=== PATIENT | female | born 1980 | race Caucasian/White ===

== ENCOUNTER → 2016-10-20 | Outpatient (CLI) | payer OTHER | LOC: FIMAGING 09:34 | PROVIDERS: ATTEND Obstetrics & Gynecology | DX: Z12.31 Encounter for screening mammogram for malignant neoplasm of breast (principal); Z80.3 Family history of malignant neoplasm of breast | CPT/HCPCS: G0202 ==

== ENCOUNTER → 2017-01-08 | Outpatient (CLI) | payer OTHER | LOC: FIMAGING 14:26 | PROVIDERS: ATTEND Obstetrics & Gynecology | DX: O09.521 Supervision of elderly multigravida, first trimester (principal); O26.851 Spotting complicating pregnancy, first trimester; Z3A.12 12 weeks gestation of pregnancy ==

== ENCOUNTER → 2017-03-05 | Outpatient (CLI) | payer OTHER | LOC: FIMAGING 08:08 | PROVIDERS: ATTEND Obstetrics & Gynecology | DX: O09.522 Supervision of elderly multigravida, second trimester (principal); Z3A.20 20 weeks gestation of pregnancy ==

== ENCOUNTER 2017-07-18 19:40 | Inpatient (IN) | payer OTHER ==
[2017-07-18] MEDS ORDERED: AMMONIA AROMATIC 1 EACH AMP IH ONE (19:50)
[2017-07-18] MEDS ORDERED: OXYTOCIN 10 UNIT/ML VIAL ONE (19:50)
[2017-07-18] MEDS ORDERED: LIDOCAINE 1% 300 MG/30 ML SDV ONE (19:50)
[2017-07-18] MEDS ORDERED: OLIVE OIL 118 ML BTL ONE (19:50)
[2017-07-18] MEDS ORDERED: TERBUTALINE SULFATE 1 MG/ML VIAL ONE (19:50)
[2017-07-18] MEDS ORDERED: MISOPROSTOL 200 MCG TAB ONE (19:50)
[2017-07-18] MEDS ORDERED: EPSOM SALT 454 GM TP PRN (19:54)
[2017-07-18] MEDS ORDERED: TERBUTALINE SULFATE 1 MG/ML VIAL IV PRN (19:54)
[2017-07-18] MEDS ORDERED: OXYTOCIN 20 UNIT in LR 1,000 ML IV PRN (19:54)
[2017-07-18] MEDS ORDERED: LR 1,000 ML IV PRN (19:54)
[2017-07-18] MEDS ORDERED: OLIVE OIL 118 ML BTL MISC PRN (19:54)
[2017-07-18] MEDS ORDERED: ACETAMINOPHEN 325 MG TAB PO PRN (20:58)
--- NOTE | 2017-07-18 21:02 | OBDEL ---
Info Type: Vaginal Presentation at Delivery: Vertex L&D Analgesia/Anesthesia Type: Local (1% lidocaine) GBS+: No - Infant Care Provider Instrumental Music Teacher/MECHANIC'S ASSISTANT: Chely Hall Indications for Delivery: Spontaneous Labor Vaginal Delivery - Delivery Provider Delivery Physician/CNM: Teresa Macias - Labor and Delivery Onset of Contractions Date: 07/18/17 Onset of Contractions Time: 17:00 Onset of Contractions Type: Spontaneous Rupture of Membranes Date: 07/18/17 Rupture of Membranes Time: 19:30 Rupture of Membranes Type: Spontaneous Amniotic Fluid Color: Clear Dilation Complete Date: 07/18/17 Dilation Complete Time: 19:45 Placenta Delivery Date: 07/18/17 Placenta Delivery Time: 20:07 Total Hours of Labor: 3 Laceration: 2nd Degree Repair: 3-0, Vicryl Vaginal Sponge Count Correct: Yes Vaginal Needle Count Correct: Yes Vaginal Sweep Performed: Yes EBL: 300 Delivery Events: Nuchal Cord (x2, tight and baby delivered through rapidly) - Medications Labor Augmentation/Induction Methods Used: None [place] Data [place] Delivery Date: 07/18/17 Delivery Time: 20:00 DAVID: 07/21/17 Gestational Age: 39 week(s) and 4 day(s) Sex of Infant: Female Score (1 Min): 8 Score (5 Min): 9 ICD10 Worksheet Patient Problems: Problems Problem Status Onset (spontaneous vaginal delivery) Acute
[2017-07-18] MEDS: IBUPROFEN 600 MG TAB PO PRN (21:12)
--- NOTE | 2017-07-18 22:02 | GHP ---
[f rep st] PREOP HISTORY AND PHYSICAL DATE OF ADMISSION: 07/18/2017 HISTORY OF PRESENT ILLNESS: The patient is a 37-year-old, G3, P1, A1 with estimated due date of 09/2016, who presents at 39+ weeks' gestation in active labor with an imminent delivery. The patient reported spontaneous onset of contractions this morning approximately 3:00 a.m., but they were up to half an hour apart. The frequency became less than 10 minutes at approximately 1700 today. The carmen ent reports that they were moderate to strong intensity, but never got more frequent than 8 minutes a part. At approximately 1720 the patient started feeling that she needed to push, and proceeded to [facility]. On the way to the hospital, she had spontaneous rupture of membranes with clear fluid. The patient was admitted at 7:45 p.m. The patient was found to be completely dilated with an uncontr ollable urge to push. Preparations were made for imminent delivery. PAST HISTORY: The patient has been with [facility] since 22 weeks gestation afte r transfer from [facility]. The patient has had an uncomplicated . The patient does have a history of kidney stones. However, no symptoms during the . The patient had b orderline platelets noted on a CBC at 28 weeks. A repeat was checked at 36 weeks and the platelets h ad improved from 165-125-114, and the patient's CBC was checked weekly in the last month. Platelets remained stable. LABS: Include maternal blood type O positive with negative antibody screen. RPR nonreactiv e. Rubella immune. Hepatitis B surface antigen negative. HIV negative. Cystic fibrosis was negati ve and the standard genetic panel was all negative. The varicella zoster was immune. Urinalysis was negative. Verifi testing was negative with negative MSAFP. Hematocrit was 39%. 1-hour Glucola was normal. GBS culture was negative. PAST MEDICAL HISTORY: The patient had a small subchorionic hemorrhage in the 1st trimester, but this spontaneously resolved. The patient had a history of 1 abnormal Pap smear, but the repeat Pap was n ormal. History of varicose veins and the patient wears supportive hose. Patient with a history of k idney stones at age 17. The patient's mother has had breast cancer at the age of 36, and the patient had a negative mammogram in October of 2016. PAST SURGICAL HISTORY: Only a D and C with an SAB in July 2016. HISTORY: In February 2014, a viable male delivered at 40 weeks at 6 pounds 12 ounces by vagina l delivery with an epidural. This was in [place]. In July 2016, the patient had a SAB, but requi red a D and C with that. ALLERGIES: The patient has no known drug allergies. CURRENT MEDICATIONS: Only vitamins. SOCIAL HISTORY: The patient is , lives with her , Eder, and their son. The patien t is a nonsmoker. No alcohol or drug use. REVIEW OF SYSTEMS: A 10-point review of systems with pertinent positives and negatives as noted abov e. PHYSICAL EXAM: VITAL SIGNS: Upon admission, the patient had a quick blood pressure taken, which was normal and the patient was clinically afebrile. heart tone monitoring was very sparse in betw een pushing. It was not classically category 1 but reassuring with baseline in the 120s. Contractio ns every 2 minutes. The patient was pushing and the baby's head was . EXTREMITIES: Nontend er. Varicose veins noted. No edema. There was clear fluid noted on the perineum. ASSESSMENT: 1. Intrauterine at 39+ weeks' gestation in active labor with an imminent vaginal . GBS negative. 1. History of kidney stones in the distant past. PLAN: The patient will deliver vaginally soon. /[id number]/MODL
[2017-07-19] MEDS: IBUPROFEN 600 MG TAB PO PRN ×4 (03:27→22:53)
[2017-07-19] MEDS: DOCUSATE SODIUM 100 MG CAP PO PRN ×2 (10:00→22:53)
[2017-07-19 10:54] VITALS: O2SAT 95
--- NOTE | 2017-07-19 13:04 | OBPP ---
Progress Note Assessment/Plan: Assessment: [id number] s/p PPD#1 2nd degree laceration Plan: routine PP care cont plan to d/c home tomorrow 07/19/17 13:03 07/19/17 13:04 Objective: 07/19/17 05:53 Temp Pulse Resp BP Pulse Ox 35.9 C L 85 16 114/74 95 07/19/17 09:00 07/19/17 09:00 07/19/17 09:00 07/19/17 09:00 07/19/17 09:00 Uterine Position/Fundal Height: Umbilicus -1, Midline Uterine Tone: Firm Physical Exam - Physical Exam EENT: PERRL/EOMI Neck: supple Respiratory: lungs clear, normal breath sounds Cardiac/Chest: regular rate, rhythm Abdomen: non-tender, soft Extremities: normal inspection Skin: normal color, warm/dry Neuro/Psych: alert, normal mood/affect, oriented x 3
[2017-07-19] MEDS ORDERED: MEASLES,MUMPS&RUBELLA VACC/PF 0.5 ML VIAL SC ONE (14:40)
[2017-07-19 23:46] VITALS: RESP 18
[2017-07-20] MEDS: IBUPROFEN 600 MG TAB PO PRN (05:42)
[2017-07-20 08:14] VITALS: BP 111/71; PULSE 80; TEMP 96.7
[2017-07-20] MEDS: DOCUSATE SODIUM 100 MG CAP PO PRN (08:15)
--- NOTE | 2017-07-20 08:19 | OBPP ---
Progress Note Assessment/Plan: Assessment: post day 2 Normal spontaneous vaginal delivery Stable afebrile Tolerating diet, ambulating and flatus Plan: Discharge home IBuprofen Follow up two weeks Return precautions given 07/20/17 08:19 Subjective/ Course: 07/20/17 08:21 patient doing well. Breast feeding tolerating diet ambulating and flatus normal lochia. Patient wants to go home Objective: 07/19/17 05:53 Temp Pulse Resp BP Pulse Ox 35.9 C L 80 18 111/71 95 07/20/17 08:12 07/20/17 08:12 07/20/17 08:12 07/20/17 08:12 07/20/17 08:12 Uterine Position/Fundal Height: Umbilicus -2 Uterine Tone: Firm Physical Exam - Physical Exam Respiratory: chest non-tender Abdomen: normal bowel sounds, non-tender, soft Extremities: normal range of motion, non-tender, normal inspection Back: Normal inspection Skin: normal color, warm/dry Neuro/Psych: no motor/sensory deficits, alert, normal mood/affect, oriented x 3
--- NOTE | 2017-07-20 08:24 | OBGCSDC ---
General Delivery Information - General Info : 3 Para: 2 Abortions: 1 Type: Vaginal L&D Analgesia/Anesthesia Type: Local Admission Date: 07/18/17 Labs: Hct 38.9 % (38.0-47.0) 07/19/17 05:53 - Hospital Course : 07/20/17 08:21 patient doing well. Breast feeding tolerating diet ambulating and flatus normal lochia. Patient wants to go home Vaginal - Delivery Provider Delivery Physician/CNM: Teresa Macias - Diagnosis Labor: Spontaneous Rupture of Membranes Type: Spontaneous Amniotic Fluid Color: Clear Laceration: 2nd Degree Repair: 3-0, Vicryl Delivery Events: Nuchal Cord (x2, tight and baby delivered through rapidly) - Delivery EBL: 300 [place] Data Nugent Delivery Date: 07/18/17 Delivery Time: 20:00 DAVDI: 07/21/17 Gestational Age: 39 week(s) and 6 day(s) Sex of Infant: Female [place] Weight (gm): 3018 kg Score (1 Min): 8 Score (5 Min): 9 Discharge Information - Discharge Information Prescriptions: Ibuprofen [Motrin (*)] 600 mg PO Q6HRS PRN #30 tab PRN Reason: post , inflammation Docusate Sodium [Colace 100 MG (*)] 100 mg PO BID PRN #30 cap PRN Reason: Constipation Condition: Good Instruction/Follow Up: Two Weeks
== END 2017-07-20 12:11 | disposition home or self-care (01) | DRG 775 ==
LOC: FLD 19:40 → FOB 21:50
PROVIDERS: ADMIT Obstetrics & Gynecology; ATTEND Obstetrics & Gynecology
PROC: 0KQM0ZZ Repair Perineum Muscle, Open Approach (ICD-10-PCS; principal; 2017-07-18)
PROC: 10E0XZZ Delivery of Products of Conception, External Approach (ICD-10-PCS; principal; 2017-07-18)
DX: O70.1 Second degree perineal laceration during delivery (principal); O69.89X0 Labor and delivery complicated by other cord complications, not applicable or unspecified; O22.03 Varicose veins of lower extremity in pregnancy, third trimester; Z3A.39 39 weeks gestation of pregnancy; Z37.0 Single live birth; Z23 Encounter for immunization
CPT/HCPCS: J3105

== ENCOUNTER → 2017-10-09 | Outpatient (CLI) | payer OTHER | LOC: BMCIMAGING 11:18 | PROVIDERS: ATTEND Family Medicine | DX: S99.912A Unspecified injury of left ankle, initial encounter (principal) ==